=== PATIENT | female | born 1995 | race Caucasian/White ===

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

== ENCOUNTER → 2018-02-19 | Outpatient (CLI) | payer OTHER | LOC: FIMAGING 09:04 | DX: Z13.820 Encounter for screening for osteoporosis (principal); F50.01 Anorexia nervosa, restricting type ==